=== PATIENT | female | born 1940 | race Caucasian/White ===

== ENCOUNTER → 2017-01-31 | Outpatient (CLI) | payer MEDICARE, OTHER ==
[~2017-01-31] MED LIST: ASPIRIN81 M2 PO; CALCIUM + D 6001 TA1 PO; LIPITOR20 MG PO; LISINOPRIL PO; METOPROLOL SUCC25 MG PO; MULTI VITAMIN1 EACH; SYNTHROID112 MCG PO
--- NOTE | ~2017-01-31 | BD1 ---
[facility] A Service of [facility] RADIOLOGY TEXT RESULTS PATIENT: DONNA BOONE LOCATION: [facility] : 38 UNIT #: [id number] AGE: [address]: Kimberley Hays MD SEX: F ORDER DR: [id number] [address] [address] [id number] O MR#: [id number] Acc #: [id number] NAME: DONNA BOONE : 1940 SEX: F STUDY DATE/TIME: 01/31/2017 9:25 UNIT: SRAD ROOM: STUDY DESCRIPTION: Dexa Bone Dens 1+ Site Attending Physician: Kimberley Hays M.D. Referring Physician: Kimberley Hays M.D. Ordering Physician: Kimberley Hays M.D. Primary Care Physician: Kimberley Hays M.D. MEDICAL IMAGING REPORT This report is preliminary unless electronic signature is present. EXAM DXA scan 01/31/2017 HISTORY Status post menopause with no hormone replacement therapy. Osteopenia. Thyroid medication, Synthroid, use for 35 years. Smoking history for 12 years. FINDINGS Bone mineral density in the lumbar spine from L1-L4 is 1.252 g/cm2 which is 0.6 standard deviations above the mean when compared to the young adult reference population which is within the range of normal. This is 2.1 standard deviations above the mean when compared to the age-matched population. Compared with 11/13/2009, there has been an increase in bone mineral density in the lumbar spine of 1.7%. Bone mineral density in the left femoral neck was 0.877 g/cm2 which is 1.2 standard deviations below the mean when compared to the young adult reference population which is characteristic of osteopenia. This is 0.7 standard deviations above the mean when compared to the age-matched population. Bone mineral density in the right femoral neck was 0.838 g/cm2 which is 1.4 standard deviations below the mean when compared to the young adult reference population which is characteristic of osteopenia. This is 0.4 standard deviations above the mean when compared to the age-matched population. Compared with 11/13/2009, there has been an increase in bone mineral density in the lumbar spine of 1.7% and a decrease in bone mineral density in the left hip of 6.4%. IMPRESSION Bone mineral density in the lumbar spine within the range of normal and within the hips bilaterally characteristic of osteopenia. Compared with 11/13/2009, there has been an increase in bone mineral density in the lumbar spine and a decrease in bone mineral density in the left hip. [facility] A Service of [facility] RADIOLOGY TEXT RESULTS PATIENT: DONNA BOONE LOCATION: [facility] : 38 UNIT #: [id number] AGE: [address]: Kimberley Hays MD SEX: F ORDER DR: Dictated by... Jigar Sandhu M.D. THIS IS AN ELECTRONICALLY VERIFIED REPORT Jigar Sandhu M.D. at 02/04/2017 2:12 PM KRT/luis e TD: 02/04/2017 01:53 JOB #: [id number] MEDICAL IMAGING REPORT Page 1 of 1
== END | disposition home or self-care (01) ==
LOC: SRAD 09:02
DX: Z13.820 Encounter for screening for osteoporosis (principal); Z78.0 Asymptomatic menopausal state
CPT/HCPCS: 77080

== ENCOUNTER 2017-03-07 13:25 | Emergency (ER) | payer MEDICARE, OTHER ==
--- NOTE | ~2017-03-07 | CR173 ---
[facility] A Service [facility] RADIOLOGY TEXT RESULTS PATIENT: DONNA BOONE LOCATION: [facility] : 38 UNIT #: [id number] AGE: [address]: SILVIA VELASQUEZ SEX: F ORDER DR: [id number] [address] [address] [id number] E MR#: [id number] Acc #: [id number] NAME: DONNA BOONE : 1940 SEX: F STUDY DATE/TIME: 03/07/2017 14:24 UNIT: SED ROOM: STUDY DESCRIPTION: CR Knee 3 Views Rt Attending Physician: Silvia Velasquez Ordering Physician: Silvia Velasquez Primary Care Physician: Kimberley Hays M.D. MEDICAL IMAGING REPORT This report is preliminary unless electronic signature is present. EXAM Right knee, 3 views COMPARISON January 21, 2017. INDICATIONS 76-year-old female with worsening right knee pain after hearing a pop today. Patient reports right knee pain for several months, again worsened today after acute injury. FINDINGS Surgical clips are again noted in the medial soft tissues at the level of the knee and just inferior to the knee. The knee is anatomically aligned. No evidence of acute fracture. There is enthesopathy at the superior pole of the patella. Evaluation for suprapatellar effusion is limited by oblique positioning on the lateral view. Minimal arterial calcification in the distal thigh. IMPRESSION 1. No acute fracture or dislocation of the right knee. 2. Patellar enthesopathy. Dictated by... Aldo Busch M.D. THIS IS AN ELECTRONICALLY VERIFIED REPORT Aldo Busch M.D. at 03/09/2017 9:08 AM EVANS/westley TD: 03/08/2017 11:20 [facility] A Service [facility] RADIOLOGY TEXT RESULTS PATIENT: DONNA BOONE LOCATION: [facility] : 38 UNIT #: [id number] AGE: [address]: SILVIA VELASQUEZ SEX: F ORDER DR: JOB #: [id number] MEDICAL IMAGING REPORT Page 1 of 1
--- NOTE | ~2017-03-07 | US85 ---
[facility] A Service of [facility] & [facility] RADIOLOGY TEXT RESULTS PATIENT: DONNA BOONE LOCATION: [facility] : 38 UNIT #: [id number] AGE: [address]: SILVIA VELASQUEZ SEX: F ORDER DR: [id number] [facility] [address] [place], [place] [address] [id number] E MR#: [id number] Acc #: [id number] NAME: DONNA BOONE : 1940 SEX: F STUDY DATE/TIME: 03/07/2017 16:48 UNIT: [facility]IV ROOM: STUDY DESCRIPTION: LE Veins Unilat or Ltd Stdy Attending Physician: Silvia Velasquez Primary Care Physician: Kimberley Hays M.D. MEDICAL IMAGING REPORT This report is preliminary unless electronic signature is present COULD NOT FIND ORDER EXAM Lower extremity venous ultrasound, right. HISTORY Right leg pain 3 months. Right leg hurts to put weight on 3 months. TECHNIQUE Venous ultrasound examination of the right lower extremity was performed using grayscale, spectral Doppler and color flow Doppler imaging. FINDINGS The examination is negative. There is no evidence of right lower extremity deep venous thrombus from the groin to the lower calf. Visualized greater saphenous vein is also patent. IMPRESSION Negative examination. No evidence of right lower extremity DVT. Dictated by... Markel Sainz M.D. THIS IS AN ELECTRONICALLY VERIFIED REPORT Markel Sainz M.D. at 03/10/2017 1:31 PM SETH/alin TD: 03/08/2017 19:44 JOB #: [id number] MEDICAL IMAGING REPORT Page 1 of 1 COPY
[~2017-03-07 13:25] MED LIST changes: -LISINOPRIL PO
[2017-03-07] MEDS ORDERED: LISINOPRIL PO (13:33)
== END 2017-03-07 18:02 | disposition home or self-care (01) ==
LOC: SED 13:25 → CNIV 14:08 → SED 14:08 → CGUS 14:08 → CNIV 18:02
DX: S89.91XA Unspecified injury of right lower leg, initial encounter (principal); M79.604 Pain in right leg; I10 Essential (primary) hypertension; E07.9 Disorder of thyroid, unspecified; Z79.82 Long term (current) use of aspirin; Z79.899 Other long term (current) drug therapy; X58.XXXA Exposure to other specified factors, initial encounter; Y92.9 Unspecified place or not applicable
CPT/HCPCS: 29530; 73562; 93971; 99283